=== PATIENT | male | born 1955 | race Caucasian/White ===

== ENCOUNTER 2017-05-28 05:40 | Outpatient (CLI) | payer MEDICAID | END 2017-05-28 05:41 | disposition critical access hospital (66) | LOC: EMS 05:40 | PROVIDERS: ATTEND Surgery | DX: M25.571 Pain in right ankle and joints of right foot (principal) | CPT/HCPCS: A0425; A0429 ==

== ENCOUNTER 2017-05-28 05:57 | Emergency (ER) | payer MEDICAID ==
--- NOTE | 2017-05-28 07:18 | ED Physician Documentation ---
PD HPI LOWER EXT INJURY - Stated complaint Stated Complaint: ANKLE INJURY - Chief complaint Chief Complaint: Trauma Ext - History obtained from History obtained from: Patient, Family - History of Present Illness PD HPI LOW EXT INJURY LOCATION: Right, Foot Type of injury: Other (walking) Where injury occurred: Street Timing - onset: Yesterday Timing - duration: Days (1) Timing - details: Gradual onset, Still present Pain level max: 8 Pain level now: 2 Improved by: Rest, Immobilization Worsened by: Moving, Other (weight bearing) Associated symptoms: No: Weakness, Numbness, Tingling, Swelling Contributing factors: No: Anticoagulated Similar symptoms before: Has not had sx before Recently seen: Not recently seen - Additional information Additional information: 61-year-old male was pushing a cart walking from [facility] yesterday when he began to feel some pain in the dorsum of his right foot. When he got to the bus stop the manager business intelligence would not allow him on the bus with his cart and he had to walk home about 1 mile last night is foot began to hurt him more and this morning is unable to bear weight on it without severe pain. He called the ambulance. Review of Systems Constitutional: denies: Fever Eyes: denies: Decreased vision Ears: denies: Ear pain Nose: denies: Congestion Respiratory: denies: Cough GI: denies: Vomiting Skin: denies: Rash Musculoskeletal: reports: Extremity pain, Joint pain, Pain with weight bearing. denies: Neck pain, Back pain, Extremity swelling, Joint swelling Neurologic: denies: Generalized weakness, Focal weakness, Numbness PD PAST MEDICAL HISTORY - Past Medical History Past Medical History: No : Kidney stones Psych: Obsessive compulsive disorder - Past Surgical History Past Surgical History: Yes - Present Medications Home Medications: Ambulatory Orders Medication Instructions Recorded Confirmed HYDROcod/ACETAM 5/325 [Rosebud 5/325] 1 - 2 ea PO Q6H PRN #15 tablet 05/28/17 - Allergies Allergies/Adverse Reactions: Allergies Allergy/AdvReac Type Severity Reaction Status Date / Time halothane [Halothane] Allergy " i " Verified 06/06/13 14:23 - Social History Does the pt smoke?: No Smoking Status: Never smoker Does the pt drink ETOH?: Yes Does the pt have substance abuse?: No - Immunizations Immunizations: TDAP >10years/unknown - POLST Patient has POLST: No PD ED PE NORMAL - Vitals Vital signs reviewed: Yes (normal ) - General General: Alert and oriented X 3, No acute distress, Well developed/nourished - HEENT HEENT: Atraumatic, PERRL, EOMI, Other (The front teeth are missing and causing the patient some dysarthria) - Respiratory Respiratory: No respiratory distress - Derm Derm: Normal color, Warm and dry, No rash - Extremities Extremities: No deformity, No edema, Other (There is no tenderness or swelling to the foot. The area of pain is localized to the dorsum of the foot proximally and into the distal tibia. The distal n/v is intact. ) - Neuro Neuro: No motor deficit, No sensory deficit Eye Opening: Spontaneous Motor: Obeys Commands Verbal: Oriented GCS Score: 15 - Psych Psych: Normal mood, Normal affect Results - Vitals Vitals: Vital Signs - 24 hr 05/28/17 05:59 Temperature 36.4 C L Heart Rate 78 Respiratory 18 Rate Blood Pressure 120/67 O2 Saturation 99 Oxygen O2 Source Room air - Rads (name of study) right foot Radiology: Prelim report reviewed (Impression: No fracture. Incidental loss navicularis, normal variant. Consider MRI if this correlates with the site of focal pain to assess for tendon inflammation.), EMP read indepedently, See rad report PD MEDICAL DECISION MAKING - ED course Complexity details: reviewed results, re-evaluated patient, considered differential, d/w patient, d/w family ED course: 61-year-old male is taken the ambulance for pain in his right foot after walking across the street having pain increase and then having to walk a mile. He has a loss navicularis and pain over that site consistent with acute tendinitis. He is given dexamethasone 10 mg here in the emergency department will place him on some pain medication as needed. Also provide crutches for the patient. Departure - Departure Disposition: 01 Home, Self Care Clinical Impression: Tendonitis of foot Condition: Stable Instructions: ED Sprain Foot Follow-Up: Allie Grijalva FNP [Primary Care Provider] - Prescriptions: HYDROcod/ACETAM 5/325 [Rosebud 5/325] 1 - 2 ea PO Q6H PRN #15 tablet PRN Reason: Pain
--- NOTE | 2017-05-28 10:09 | XRAY Report ---
EXAM: RIGHT FOOT RADIOGRAPHY EXAM DATE: 05/28/2017 07:43 AM. CLINICAL HISTORY: Dorsal pain proximal . COMPARISON: None. TECHNIQUE: 3 views. FINDINGS: Bones: Mild demineralization. No acute fracture proximal obstruction. Calcaneal cyst. Incidental os n avicularis. Joints: Mild degenerative changes, intertarsal and tarsometatarsal. Soft Tissues: Mild regional soft tissue swelling. IMPRESSION: No fracture. Incidental os navicularis, normal variant. Consider MRI if this correlates with the site of focal eleni n to assess for tendon inflammation. [facility] Referring Provider Line: [phone] SITE ID: [id number]
[2017-05-28] MEDS ORDERED: DEXAMETHASONE 10 MG/ML VIAL PO STA (10:19)
[2017-05-28 10:40] VITALS: BP 123/68
== END 2017-05-28 10:41 | disposition home or self-care (01) ==
LOC: EDUNIT# → ED 05:57 → SUPCPDRO 05:57 → ED 10:41
DX: M77.51 Other enthesopathy of right foot and ankle (principal)
CPT/HCPCS: 99283

== ENCOUNTER 2018-05-21 17:02 | Outpatient (CLI) | payer MEDICAID | END 2018-05-21 23:59 | disposition short-term general hospital (02) | LOC: EMS 17:02 | PROVIDERS: ATTEND Surgery | DX: R11.2 Nausea with vomiting, unspecified (principal) | CPT/HCPCS: A0425; A0427; A0888; A0999 ==